=== PATIENT | female | born 1990 | race Hispanic/Latino ===

== ENCOUNTER 2017-06-04 02:18 | Emergency (ER) | payer SELFPAY ==
[~2017-06-04] VITALS: Ht 167.6 cm; Wt 68.0 kg
[2017-06-04 02:30] VITALS: BP 128/85
--- NOTE | 2017-06-04 03:28 | ED PSYCHIATRIC COMPLAINT ---
History of Present Illness General Chief Complaint: ETOH/Drug Related Complaint Stated Complaint: BIBA, ETOH Source: patient, EMS, police Exam Limitations: intoxication Vital Signs & Intake/Output Vital Signs & Intake/Output Vital Signs Date Time Temp Pulse Resp B/P B/P Pulse O2 O2 Flow FiO2 Mean Ox Delivery Rate 06/04 0230 95.3 102 16 128/85 97 Room Air Room Air Allergies Coded Allergies: No Known Allergies (06/04/17) Reconcile Medications No Known Home Medications Triage Note: 26YO FEMALE TO [facility]IA [facility]B SP FOUND LOCKED OUTSIDE OF HER RENTAL APT. SMELL OF ETOH. ADMITS TO DRINKING. TEARFUL, STATES SHE USUALLY DOESN'T DRINK, AND TONITE HAD TOO MUCH. INCONTINENT OF URINE. Triage Nurses Notes Reviewed? yes Onset: Just prior to arrival Duration: constant, continues in ED Timing: recent history Severity: moderate, severe LMP (ages 10-50): unknown : No Patient currently breastfeeds: No HPI: Prior to admission patient was drinking alcohol return to her into rented apartment but could not locate barrett. Neighbors called the police due to commotions and she was brought for evaluation. She denies fever chills nausea vomiting diarrhea abdominal pain chest pain shortness breath headache dysuria rash bleeding. Past History Travel History Traveled to [place] past 21 day No Medical History Any Pertinent Medical History? none Neurological: NONE EENT: NONE Cardiovascular: NONE Respiratory: NONE Gastrointestinal: NONE Hepatic: NONE Renal: NONE Musculoskeletal: NONE Psychiatric: NONE Endocrine: NONE Blood Disorders: NONE Cancer(s): NONE MODEL AND MOLD MAKER/Reproductive: NONE Surgical History Surgical History: non-contributory Psychosocial History What is your primary language Ukrainian Tobacco Use: Never used ETOH Use: occasional use Family History Hx Contributory? No Review of Systems Review of Systems Constitutional: Reports: no symptoms. EENTM: Reports: no symptoms. Respiratory: Reports: no symptoms. Cardiovascular: Reports: no symptoms. GI: Reports: no symptoms. Genitourinary: Reports: no symptoms. Musculoskeletal: Reports: no symptoms. Skin: Reports: no symptoms. Neurological/Psychological: Reports: see HPI, cognitive dysfunction, confusion. Hematologic/Endocrine: Reports: no symptoms. Immunologic/Allergic: Reports: no symptoms. All Other Systems: Reviewed and Negative Physical Exam Physical Exam General Appearance: well developed/nourished, alert, awake, anxious, comfortable Head: atraumatic, normal appearance Eyes: Bilateral: PERRL, EOMI. Ears, Nose, Throat: normal pharynx, normal ENT inspection, hearing grossly normal Neck: normal inspection, supple Respiratory: normal breath sounds Cardiovascular: regular rate/rhythm Gastrointestinal: soft, non-tender Extremities: normal range of motion Neurological/Psychiatric: no motor/sensory deficits, awake, alert, anxious, hopper attendant II-XII nml as tested Appearance/Memory/Insight: disheveled, impaired insight Behavoir/Eye Contact/Speech: cooperative, normal speech Thoughts/Hallucinations: no apparent hallucination Skin: intact, normal color, warm/dry SAD PERSONS Done? patient not suicidal Progress Differential Diagnosis: drug intoxication, drug overdose, hypoglycemia Plan of Care: Orders Procedure Date/time Status Patient Safety Monitor 06/04 624 Active Patient Safety Monitor 06/04 230 Active URINE DRUG SCREEN FOR ER ONLY 06/04 230 Active ETHANOL 06/04 230 Active COMPREHENSIVE METABOLIC PANEL 06/04 230 Active CBC WITHOUT DIFFERENTIAL 06/04 230 Active Departure Departure Time of Disposition: 347 Disposition: HOME OR SELF CARE Condition: Stable Clinical Impression Primary Impression: Alcohol intoxication delirium Referrals: Patient Has No Primary Care Dr (PCP/Family) Departure Forms: General Discharge Information Prescriptions: Current Visit Scripts No Known Home Medications
== END 2017-06-04 04:29 ==
LOC: ERH 02:18
DX: F10.121 Alcohol abuse with intoxication delirium (principal)
CPT/HCPCS: 80307; G0480